=== PATIENT | female | born 1950 | race Asian ===

== ENCOUNTER → 2017-07-03 | Outpatient (CLI) | payer MEDICARE, BC ==
[~2017-07-03] MED LIST: ACET-709 PO; ALLO100T30 PO; AMLO10TA4 PO; ASPI-13 PO; ASPI-621 PO; ATOR80TA PO; BUDE10.2 INH; CEFU1.5V IV; COLC0.6T37 PO; DIAZ2TAB3 PO; ESTR0.5T3 PO; FLUT9.9S INH; GABA300C10 PO; HYDR20TA22 PO; INDO25CA PO; INDO50CA PO; LISI-167 PO; METF500T9 PO; OMEP-110 PO; PRED20TA PO; RIFA300C3 PO; TOPI100T8 PO; TRIA1TAB5 PO; WARF2.5T73 PO; [UNRECOGNIZED DRUG - CODE] PO
== END | disposition home or self-care (01) ==
LOC: CVU 15:49
PROVIDERS: ATTEND Internal Medicine Cardiovascular Disease
DX: I08.1 Rheumatic disorders of both mitral and tricuspid valves (principal); E78.5 Hyperlipidemia, unspecified; I10 Essential (primary) hypertension; E11.9 Type 2 diabetes mellitus without complications; Z86.73 Personal history of transient ischemic attack (TIA), and cerebral infarction without residual deficits
CPT/HCPCS: 93306

== ENCOUNTER → 2017-08-13 | Outpatient (CLI) | payer MEDICARE, BC | END | disposition home or self-care (01) | LOC: CFH 10:23 | PROVIDERS: ATTEND Internal Medicine | DX: R19.7 Diarrhea, unspecified (principal) | CPT/HCPCS: 87493 ==

== ENCOUNTER → 2019-09-22 | Outpatient (CLI) | payer MEDICARE, BC ==
[~2019-09-22] MED LIST changes: -ASPI-621 PO; +ASPI81TA45 PO; -HYDR20TA22 PO; +HYDR20TA23 PO; -INDO25CA PO; +INDO25CA22 PO; -INDO50CA PO; +INDO50CA15 PO; +METF-754 PO; -METF500T9 PO; +WARF2.5T32 PO; -WARF2.5T73 PO
== END | disposition home or self-care (01) ==
LOC: CFH 09:35
PROVIDERS: ATTEND Specialist
DX: Z12.31 Encounter for screening mammogram for malignant neoplasm of breast (principal)
CPT/HCPCS: 77067

== ENCOUNTER → 2019-09-24 | Outpatient (CLI) | payer MEDICARE, BC ==
[~2019-09-24] MED LIST changes: +REGADENOSON 0.4 MG/5 ML SYRINGE ONE
== END | disposition home or self-care (01) ==
LOC: CFH 07:39
PROVIDERS: ATTEND Internal Medicine Cardiovascular Disease
DX: I05.1 Rheumatic mitral insufficiency (principal); I11.9 Hypertensive heart disease without heart failure
CPT/HCPCS: 78452; 93017; 93306; A9502; J2785